=== PATIENT | female | born 1970 | race Caucasian/White ===

== ENCOUNTER 2023-02-28 11:23 | Day surgery (SDC) | payer OTHER, SELFPAY ==
[2023-02-28] VITALS (14 sets, daily range): BP systolic 125–145; BP diastolic 68–84; PULSE 39–60; RESP 12–18; TEMP 36.4–36.7; O2SAT 95–100; BMI 23.8
[2023-02-28] MEDS: LACTATED RINGERS 1000 ML 1,000 ML 100 ML IV (11:35)
--- NOTE | 2023-02-28 12:47 | P.GSCN_ITS ---
History of Present Illness Consult details Date Seen: 02/28/23 Consult date: 02/28/23 Narrative: Patient is an otherwise healthy 52-year-old female who presented to clinic today with worsening abdominal pain. She states that her pain started on was just above her belly button and crampy in quality. She thought that it was associated with her IBS. On Tuesday the pain traveled to her right lower quadrant. Became worse throughout Tuesday and Tuesday. She has never had pain like this before. Movement makes it worse. She does report some nausea, no emesis. Last ate yesterday evening. No fevers or chills at home. She did have some diarrhea starting on . She has never had abdominal surgery before. Review of Systems Status of ROS: Reports: 6 or more systems reviewed and unremarkable except as noted in History and below [facility] Medical History (Updated 02/28/23 @ 12:51 by Lilo Bustamante MD) Colonic polyp ?K63.5 - Polyp of colon (ICD-10) IBS (irritable bowel syndrome) ?K58.9 - Irritable bowel syndrome without diarrhea (ICD-10) Surgical History (Updated 02/28/23 @ 12:08 by Arielle Darling RN) History of D&C ?Z98.890 - Other specified postprocedural states (ICD-10) Social History Smoking Status: Never smoker Do you use any of these nicotine containing products: None How often do you have a drink containing alcohol: monthly or less Alcohol type: wine How many standard drinks containing alcohol do you have on a typical day: 1 or 2 How often do you have six or more drinks on one occasion: Never AUDIT-C Alcohol total score: 1 Non-prescribed substance use: denies use Caffeine: Yes Are you using contraception or practicing any form of control: No (IUD, post menopausal) Meds Home Medications and Allergies Home Medications Medication Instructions Recorded Confirmed Type levonorgestrel 21 mcg/24 hours (8 intrauterine 02/28/23 History yrs) 52 mg intrauterine device (Mirena) Allergies Allergy/AdvReac Type Severity Reaction Status Date / Time latex Allergy Mild Rash Verified 02/28/23 11:49 Sulfa (Sulfonamide Allergy Mild Rash Verified 02/28/23 11:49 Antibiotics) codeine AdvReac Mild Nausea Verified 07/10/23 11:49 Exam Narrative: Exam Narrative: General: Alert and oriented, no acute distress Respiratory: Equal breath rise bilaterally, maintained on room air CV: Regular rhythm rate Abdomen: Soft, tender to palpation right lower quadrant with some guarding, no rebound. Const: Vital Signs, click to edit/add: Vital Signs - 24 hr 02/28/23 12:06 Temperature 98.0 F Pulse Rate 57 L Respiratory Rate 16 Blood Pressure 125/68 Pulse Oximetry 96 Oxygen Delivery Me thod Room Air Results Labs Labs: No evidence of leukocytosis on labs done at clinic (white blood cell 7.3) Imaging Abdomen CT scan report/results: report reviewed and image reviewed Assessment and Plan Assessment and plan (1) Appendicitis: Status: Acute Plan The patient presented with a history, exam and imaging findings on CT scan consistent with acute appendicitis. I discussed the treatment options with the patient including non-surgical and surgical options. I recommended laparoscopic appendectomy. The risks of surgery were reviewed with the patient including the risks of bleeding, post-operative wound or intra-abdominal infection, injury to abdominal structures and possible conversion to an open operation. We also discussed anesthetic complications including NM, stroke, respiratory failure and blood clots. The patient voiced an understanding of our conversation, had the opportunity to ask questions, agreed to accept the risks of surgery and asked that we proceed with surgery.
[2023-02-28] MEDS: BUPIVACAINE 0.25% 30 ML 20 ML INJECTION (13:53)
--- NOTE | 2023-02-28 14:22 | PM.GSPRC ---
Operative Note Date of procedure: 02/28/23 Pre-op diagnosis: Acute appendicitis Post-op diagnosis: same, non perforated Type of Procedure: laparoscopic appendectomy Indications: patient is a 52-year-old female with workup in clinical symptoms consistent with acute appendicitis. Different treatment options were reviewed with the patient, with recommendations for operative intervention. Risks and benefits of operative intervention were discussed at length with the patient. Risks included but was not limited to: Bleeding, infection, risk of damage to surrounding structures, possible need for additional procedures, possible need to convert to an open operation and postoperative complications such as pneumonia, pulmonary emboli or VT. All questions and concerns were addressed with the patient agreeing to proceed. Procedure Description: After discussing the risks and benefits of the procedure, the patient signed informed consent.? The operative site was marked and the patient was brought to the operating room and placed on the operating table in supine position.? Care was taken to pad the patient's pressure points.?? The patient was then intubated by anesthesia.?? The operative site was then prepped and draped in the usual sterile fashion.? A time-out was then performed. Entrance to the abdomen was obtained via a 5 mm optical trocar in the left upper quadrant. The abdomen was insufflated and briefly surveyed for any signs of injury. There were none. A 12 mm port was placed lateral to the umbilicus as well as a 5 mm port in the left lower quadrant under direct vision. The patient was then placed in Trendelenburg position with the right side up. The small bowel was gently moved out of the way and the appendix was in view. the appendix was inflamed, but easily grasped and pulled into view. There was no evidence of perforation. A mesenteric window was created between the base of the appendix and the mesoappendix. A 45 mm Endo-KEITH purple load stapler was then used to transect the appendix at its base. A 30 mm vascular load stapler was then used to take the mesoappendix. The staple lines were inspected for bleeding. There was none. The appendix was then removed from the abdomen using an Endo-Catch bag. The specimen was sent to pathology. The 12 mm port site fascia was closed with 0 Vicryl via the Gaurav Harry. The skin was then closed with absorbable subcuticular suture. Dermabond was then applied. Instrument sponge and needle counts were correct at the end of the case. The patient was then woken and transported to the PACU in stable condition. Findings: Inflamed appendix, non perforated Anesthesia: LOGANA Surgeon: Lilo Bustamante MD Estimated blood loss (mL): 5 Specimen: Appendix Condition: stable Disposition: same day
--- NOTE | 2023-02-28 14:24 | W.ANESCHARGE ---
Anesthesia Charges Start Date/Time Anesthesia Start Date: 02/28/23 Anesthesia Start Time: 13:31 Stop Date/Time Anesthesia Stop Date: 02/28/23 Anesthesia Stop Time: 14:34
--- NOTE | 2023-02-28 14:35 | W.ANESCHARGE ---
Anesthesia Charges Start Date/Time Anesthesia Start Date: 02/28/23 Anesthesia Start Time: 13:31 Stop Date/Time Anesthesia Stop Date: 02/28/23 Anesthesia Stop Time: 14:34
[2023-02-28] MEDS: ONDANSETRON 2 MG/ML inj 4 MG IVP (14:50)
[2023-02-28] MEDS: fentaNYL 100 MCG/2 ML inj 50 MCG IVP (14:51)
[2023-02-28] MEDS: OXYCODONE 5 MG TABLET PO (15:50)
== END 2023-02-28 16:19 | disposition home or self-care (01) ==
PROVIDERS: PCP Physician Assistant; Visit Provider Surgery
PROC: 0DTJ4ZZ Resection of Appendix, Percutaneous Endoscopic Approach (ICD-10-PCS; CPT 44970; principal; 2023-02-28 13:30)
DX: K35.80 Unspecified acute appendicitis (principal)
CPT/HCPCS: 44970; 00840; 88304; A9270; J0330; J0665; J1100; J1885; J2250; J2405; J2543; J2704; J3010; J3490; J7120

== ENCOUNTER 2023-05-26 19:29 | Outpatient (CLI) | payer OTHER, SELFPAY ==
--- NOTE | 2023-05-26 19:45 | CRLHL7_ITS ---
For Patients: As a result of the Century Cures Act, medical imaging exams and procedure reports are released immediately into your electronic medical record. You may view this report before your referring provider. If you have questions, please contact your health care provider. HISTORY: Pain and swelling. Trauma. TECHNIQUE: Noncontrast MRI of the right ankle. COMPARISON: No prior. FINDINGS: Tendons: Small amount of fluid within the posteromedial flexor tendon sheaths. Those tendons appear intact otherwise. The anterior extensor tendons are intact. The peroneal tendons are intact. There is mild Achilles tendinosis. No Achilles tendon tear. - Ligaments: The anterior talofibular ligament appears disrupted. The calcaneofibular ligament is also abnormal with increased signal within the ligament towards its calcaneal attachment indicating sequelae of high-grade tearing. The posterior talofibular ligament is intact. The anterior and posterior syndesmotic ligaments are intact. There is high-grade partial tearing of the deltoid ligament as noted on coronal PD fat sat image #19 of series 6. Calcaneonavicular spring ligament intact. - Joint spaces: Small amount of ankle joint fluid. No focal cartilage defect or joint body. Small posterior subtalar joint effusion. Subtalar articulations otherwise maintained. Talonavicular and calcaneocuboid articulations are maintained. Joint spaces within the midfoot and at the midfoot-forefoot junction are maintained. - Bones and soft tissues: There is no acute fracture or avascular necrosis. Subcutaneous edema like signal is present. No proximal plantar fascial tear. IMPRESSION: 1. Complete tear of the anterior talofibular ligament. At least high-grade partial tearing of the calcaneofibular ligament towards its calcaneal attachment. 2. High-grade partial tearing of the deltoid ligament. 3. Syndesmotic ligaments intact. 4. Soft tissue edema. 5. Mild Achilles tendinosis, without tendon tear. 6. No acute fractures. Dictated by Dallin Martinez MD @ 05/29/2023 8:47:34 AM (Electronically Signed)
== END 2023-05-26 19:30 | disposition home or self-care (01) ==
LOC: MRI 19:30
PROVIDERS: PCP Physician Assistant; Visit Provider Podiatrist
DX: M25.571 Pain in right ankle and joints of right foot (principal); S93.401A Sprain of unspecified ligament of right ankle, initial encounter; S93.491A Sprain of other ligament of right ankle, initial encounter; S93.421A Sprain of deltoid ligament of right ankle, initial encounter
CPT/HCPCS: 73721

== ENCOUNTER 2023-09-19 09:18 | Outpatient (CLI) | payer OTHER, SELFPAY ==
--- OUTSIDE RECORDS SUMMARY | 2023-09-19 09:30 | XMS_ITS ---
Author Name Unknown Organization [facility] Address [address] [place] [address] Care Team Providers Care Pipe Line Maintenance Supervisor Name Role Phone Unavailable Unavailable Unavailable Surgery Details Not on file Complications Check Surgery Details section. Procedure Estimated Blood Loss Check Surgery Details section. Procedure Findings Check Surgery Details section. Procedure Specimens Taken Check Surgery Details section.
--- OUTSIDE RECORDS SUMMARY | 2023-09-19 09:30 | XMS_ITS | Referral Summary ---
Author Name Unknown Organization [facility] Address [address] [place] [address] Care Team Providers Care Percussion Instrument Repairer Name Role Phone Unavailable Primary Care Provider Unavailabl e Source Comments Patient records contain information from all sites at [facility]. For routine questions regarding patient records, call [phone] during business hours, M-F 8:00 AM - 5:00 PM Central Time. Record requests for emergency care only can be directed to [phone] at any time.[facility] Social History Tobacco Use Types Packs/Day Years Used Date Smoking Tobacco: Never Assessed Nutrition Answer Date Recorded Nutrition: EVOO Fat Source Unknown 10/24 Nutrition: Servings of Fruits/Vegetables per Day Not on file 10/24/2020 Dental Answer Date Recorded Dental: Regular Dentist Unknown 10/25/19 21 Sex and Gender Information Value Date Recorded Sex Assigned at Not on file Gender Identity Not on file Sexual Orientation Not on file Plan of Treatment Not on file
--- OUTSIDE RECORDS SUMMARY | 2023-09-19 09:30 | XMS_ITS | Clinical Summary ---
Author Name Unknown Organization [facility] Address [address] [place] [address] Care Team Providers Care Control Systems Developer Name Role Phone Unavailable Primary Care Provider Unavailabl e Source Comments Patient records contain information from all sites at [facility]. For routine questions regarding patient records, call [phone] during business hours, M-F 8:00 AM - 5:00 PM Central Time. Record requests for emergency care only can be directed to [phone] at any time.[facility] Social History Tobacco Use Types Packs/Day Years [...] Orientation Not on file Plan of Treatment Health Maintenance Due Date Last Done Comments CT Colonography 1969 Cervical Cancer Screening 1969 Cologuard 1969 Colonoscopy 1969 Colorectal Cancer Screening 1969 FIT 1969 HIV Screening 1969 Hepatitis C Screening 1969 Mammogram 1969 Fasting Glucose for Diabetes Screening 10/10/2022 10/10/2019 Zoster Vaccines (2 of 2) 12/08/2022 10/13/2022 Depression Screening (Annual PHQ-2) 08/22/2023 Lipid (Cholesterol) Screening 10/10/2024 10/10/2019 DTaP,Tdap,and Td Vaccines (3 - Td or Tdap) 10/10/2029 10/10/2019, 07/05/2008, 01/01/1996 Hepatitis B Vaccines Completed 09/20/2011, 05/10/2011, 11/26/2010 COVID-19 Vaccine Completed 06/11/2023, , 12/26/2020, Additional history exists Influenza Vaccine Completed 06/11/2023, , 10/21/2019, Additional history exists Pneumococcal vaccine (0-64 years) Aged Out No longer eligible based on patient's age to complete this topic
--- OUTSIDE RECORDS SUMMARY | 2023-09-19 09:31 | XMS_ITS | Data Portability ---
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 The patient was verbally identified and written consent was obtained prior to our session. These sessions are not being recorded. Due to the nature of telemedicine the ability to do physical assessment was limited to what can be accomplished over a video and by patient instruction. Those limits are understood by the patient and myself. Impression is based on history, available information and physical findings accomplished with video assist. Chronic disease/problem list and medication list were reviewed and updated where indicated. We reviewed the patients past medical and personal history, family medical history, social history, past hospitalizations and surgical history and a review of systems was reviewed and addressed as documented today as part of this visit. Medication list was reviewed and adjusted as indicated. We discussed the diagnosis, contributing factors and treatment plan including risks, benefits and options of treatment. Level of patient risk was of moderate complexity due to the documented nature of presentation, the information assessment required and the nature of the development of an evaluation and treatment plan as documented. Today I spent a considerable amount of time discussing the patient's past medical and personal history all of which is documented in its entirety in the electronic health record. I reviewed the pathophysiology of the disorder, potential contributing and risk factors as well as treatment options to address their complaints. Today no imaging was obtained due to telehealth. I will obtain a PANORAMIC film at the patient's in-office appointment. From a treatment perspective I've recommended rehabilitative treatment approach. Treatment begins with home self management designed to rest the muscles of mastication and reduce inflammation in the temporomandibular joints. This includes heat and ice compresses, eating a soft food or pain-free diet, bilateral chewing, identifying and decreasing daytime muscle tension and modification of their sleep position. Today I taught simple jaw exercises designed to improve jaw mechanics and movement, improve range of mouth opening, and improve TM joint fluid circulation to facilitate healing. This includes jaw rotation, simple stretch and relaxed breathing. This was both demonstrated and given in written format. Concurrently I taught proper posture. I emailed the instructions. Beyond self management I do believe that they would benefit from a maxillary intraoral appliance to help stabilize the musculoskeletal structures of the jaw. In addition I've recommended rehabilitation with physical therapy beginning with telehealth. The goal of treatment is to restore function and reduce pain. I do believe that by following these treatment recommendations there is a good prognosis for reduction of symptoms. Today a prescription for cyclobenzaprine 10 mg qhs, was provided to the patient. The risks and benefits associated with the prescribed medication was discussed with the patient today. Patient was asked to discontinue medication intake and return to clinic if significant side effects were noted from the medication. Greater than 50% of today's visit was spent counseling and coordinating care. Today's visit start time was 9:30 am and end time was 10:21 am. I've suggested a return for follow-up care as soon as clinic re-opens. I advised to call for new, worsening or persistent symptoms. Patient is encouraged to visit and use our patient communicator portal as a means of reviewing visit summaries and recommendations generated as part of all patient visits, as a secure means of communication with our office and the doctor for any purpose any time and as a great means to get a copy of patient specific medical records. Not available 12/12/2019 15:11:46 01/07/2020 01/07/2020 Today I reviewed the diagnosis, contributing factors and treatment options. I reviewed and reinforced continued use of self care and home exercises. I've encouraged daily home care use which may consist of heat and ice compresses, oral habit reduction and relaxation techniques. Today I took a panoramic radiograph. In this radiograph the mandibular condyles were partially visualized and appear slightly flattened and irregular suggestive of early stage DJD. There was no other suggestion of osseous or odontogenic abnormalities. We began the fabrication process for a custom maxillary flat plane splint. Deja will also be scheduling for physical therapy. I've suggested that the patient return for follow-up care in 2-4 weeks. Today greater than 50% of the 25 minute visit was spent counseling and coordinating care. This may have included a review of the diagnosis, contributing factors, diagnostic imaging, home self-management strategies and the limitations and expectations. Not available 01/07/2020 17:58:28 01/21/2020 01/21/2020 Patient was seen today for follow-up and insertion of a maxillary stabilization intraoral appliance. Diagnosis and contributing factors were reviewed. Questions were answered. Self-management and home exercise techniques were reviewed. Today the intraoral appliance was fit to patient comfort. Specifically, adjustments were made to balance appliance occlusion. Instructions on proper use and care were discussed/reviewed both written and verbally. I suggested that (s)he uses the appliance as a retraining tool to aid in relaxing their jaw muscles - put it in 20-30 minutes before bed time, keeping their jaw in a relaxed balanced position, simultaneously applying a heat compress on the jaw. Potential side effects were reviewed. The patient was advised to discontinue oral appliance use should they experience untoward side effects or be unable to return for follow-up care. The patient was advised to return in 3-4 weeks to reassess their progress and continue their treatment plan as previously outlined. In addition to oral appliance insertion today we review home self-care strategies as previously discussed. Today greater than 50% of the 15 minute visit was spent counseling and coordinating care. This may have included a review of the diagnosis, contributing factors, home self-management strategies and the limitations and expectations. Not available 01/21/2020 15:50:16 01/21/2020 01/21/2020 Symptoms are consistent with TMD diagnosis. Patient is low complexity with 1 personal factors / comorbidities affecting the plan of care, which with stable clinical presentation. Examination determines affected structures, participation restrictions and/or functional limitations. The patient will benefit from PT to decrease pain and increase function. Contributing factors include muscle guarding, stress and poor posture. Treatment will include exercises to release muscle tension and increase strength and stability. Habit monitoring and repeated reminding techniques will be utilized to eliminate habitual clenching. Improvement in first session; jaw opening increased, cervical ROM increased, pain level decreased Short term goals; 3 weeks Client to be able to open mouth to 35 mm pain free without deviation or crepitis Client to be able to bite down with 50% less pain than at evaluation Client to improve cervical ROM to Within Normal Limits Improve patient awareness of muscle guarding habits to decrease pain by 50% MCFP goals-6 weeks Client to demonstrate independence in maintaining precautions to prevent TMJ pain Client to present with at least 75% less crepitis Client to open jaw to at least 40 mm without pain, deviation or crepitis Improve active lateral excursion to at least 8 mm right and left without pain Client to have pain-free chewing with moderately hard diet 75% of the time Client to report pain level is reduced at least 75% as evidenced by functional limitation scale PLAN: Client is to be seen 1-2x/week for 4-8 weeks for instruction in jaw and neck exercises, postural exercises and body mechanics instructions, self-soft tissue mobilization and avoidance of precipitating parafunctional activities. csather Not available 01/22/2020 12:35:00 01/30/2020 01/30/2020 Improvement in session; jaw opening increased, pain level decreased sas she reports feeling better. Strongly emphasized that she is not to feel increased pain with techniques or the jaw muscles may get tight in reaction to that. Discussed inflammation and how calming that reaction could improve the ability to masssage and loosen the TMJ muscles. Short term goals; 3 weeks Client to be able to open mouth to 35 mm pain free without deviation or crepitis Client to be able to bite down with 50% less pain than at evaluation Client to improve cervical ROM to Within Normal Limits Improve patient awareness of muscle guarding habits to decrease pain by 50% MCFP goals-6 weeks Client to demonstrate independence in maintaining precautions to prevent TMJ pain Client to present with at least 75% less crepitis Client to open jaw to at least 40 mm without pain, deviation or crepitis Improve active lateral excursion to at least 8 mm right and left without pain Client to have pain-free chewing with moderately hard diet 75% of the time Client to report pain level is reduced at least 75% as evidenced by functional limitation scale PLAN: Client is to be seen 1-2x/week for 4-8 weeks for instruction in jaw and neck exercises, postural exercises and body mechanics instructions, self-soft tissue mobilization and avoidance of precipitating parafunctional activities. csather Not available 01/30/2020 17:46:41 02/06/2020 02/06/2020 Improvement in session; jaw opening increased to 32, pain level decreased sas she reports feeling better. Strongly emphasized that she is not to feel increased pain with techniques or the jaw muscles may get tight in reaction to that. Discussed inflammation and how calming that reaction could improve the ability to massage and loosen the TMJ muscles. She used the ice popsicle several times but is not as inflamed today. Strongly cautioned client to avoid going overhead with kettleball Short term goals; 3 weeks Client to be able to open mouth to 35 mm pain free without deviation or crepitis Client to be able to bite down with 50% less pain than at evaluation Client to improve cervical ROM to Within Normal Limits Improve patient awareness of muscle guarding habits to decrease pain by 50% superintendent marine oil terminal goals-6 weeks Client to demonstrate independence in maintaining precautions to prevent TMJ pain Client to present with at least 75% less crepitis Client to open jaw to at least 40 mm without pain, deviation or crepitis Improve active lateral excursion to at least 8 mm right and left without pain Client to have pain-free chewing with moderately hard diet 75% of the time Client to report pain level is reduced at least 75% as evidenced by functional limitation scale PLAN: Client is to be seen 1-2x/week for 4-8 weeks for instruction in jaw and neck exercises, postural exercises and body mechanics instructions, self-soft tissue mobilization and avoidance of precipitating parafunctional activities. csather Not available 02/06/2020 17:45:11 01/12/2021 01/12/2021 Today I reviewed the diagnosis, contributing factors and treatment options. I reviewed and reinforced continued use of self care and home exercises. I've encouraged daily home care use which may consist of heat and ice compresses, oral habit reduction and relaxation techniques. The intraoral appliance was adjusted to patient comfort and balanced. Deja said that it felt much more comfortable. She will start wearing it tonight. History today was obtained from the patient. The patient has 5+ diagnoses they would like to address. Their symptoms are improving. This case is moderate complexity because of multiple diagnoses with chronic symptoms. Risk of complications including disease progression were discussed. Today time spent may have included a review of past records, history taking, review of diagnoses, contributing factors, treatment plan, diagnostic testing, prognosis, expectations, risks and complications of treatment/no treatment, discussions with other providers and completing documentation was 35 minutes. I've suggested that the patient return for follow-up care in 2-4 weeks. Not available 01/13/2021 09:42:51 Plan of Treatment Reminders Order Date Submit Date Provider Last Modified By Organization Details Last Modified Time Details Appointments None recorded. Lab None recorded. Referral physical therapist referral 2019 020 sloane l1 [place], [facility] [address], [address], 0 16:02:39 Procedures None recorded. Surgeries None recorded. Imaging XR, orthopantog geraldine 2019 020 sloane l1 El[place], [facility] [address], [place], [address], 0 16:02:39 Medication Orders cyclobenzap rine 10 mg tablet 2019 020 vsheppard 3 [id number], [address] [place] [address], [id number], 0 15:12:52 Patient Targets Encounter Date Encounter Id Patient Goals Patient Target Last Modified By Organization Details Last Modified Time open jaw further csather Not available 02/06/2020 17:05:19 open jaw further csather Not available 01/30/2020 17:07:45 open jaw further csather Not available 01/22/2020 12:34:05 Patient Instructions Encounter Date Encounter Id Patient Instructions Last Modified By Organization Details Last Modified Time 12/12/2019 [id number] oral appliance preparation* Not available 12/12/2019 15:14:37 Self Care for TMD Not availabl e 12/12/2019 15:14:37 Three Jaw Exercises Not available 12/12/2019 15:14:37 Reason for Referral Physical Therapist Referral for Myofascial pain Referring Physician: Kaitlin Ferris, Pain Management, Encounter Date: 12/12/2019 Results Created Date Observation Date Name Description Value Unit Range Abnormal Flag LastModifiedBy Organization Detail LastModifiedTime 12/12/2019 oral appli ance prepa ratio n* Type of appliance maxill alfredo stabil izatio n applia nce Not Available Elma [address], [place], [address], 12/12/2019 14:18:04 01/07/20 20 XR, ortho panto gram No observ ation record ed. Not Available 01/07/2020 16:48:44 Result Notes None recorded. Problems Name Status Onset Date Resolution Date Notes Provider Name and Address Organization Details Recorded Time Myofascial pain Active 020 masticato ry-improv ed Kaitlin martel [facility] 1 09:38:38 Limited opening of mandible Active 020 improved Kaitlin martel [facility] 1 09:38:41 Otalgia of right ear Active 020 improved Kaitlin martel [facility] 1 09:38:48 Temporomandibular joint crepitus on opening of jaw Active 020 Kaitlin martel [facility] 0 14:17:10 Arthralgia of temporomandibular joint Active 020 improved Kaitlin martel [facility] 1 09:38:58 Screening for disorder Active 020 Kaitlin martel [facility] 0 14:17:45 Problem Notes None recorded. Procedures Surgical History Date Name Laterality Status Provider Name and Address Organization Details Recorded Time 02/06/20 20 83425: Therapeutic Exercise completed Manuel martel [facility] 02/06/2020 17:05:19 02/06/20 20 59047: Manual Therapy completed Manuel martel [facility] 02/06/2020 17:05:19 01/30/20 20 11979: Therapeutic Exercise completed Manuel martel [facility] 01/30/2020 17:07:44 01/30/20 20 38895: Manual Therapy completed Manuel martel [facility] 01/30/2020 17:43:38 01/21/20 [facility] 01/21/2020 15:16:03 01/21/20 11477 PT Eval - Low Complexity [facility] 01/21/2020 18:46:00 01/21/20 20 37170: Therapeutic Exercise completed Manuel martel [facility] 01/21/2020 18:46:02 01/21/20 20 67757: Manual Therapy completed Manuel martel [facility] 01/22/2020 12:33:00 01/07/20 20 Orthopantogram completed Kaitlin martel [facility] 01/07/2020 17:09:16 08/22/19 18 procedure on foot completed Vidal martel [facility] 12/12/2019 10:13:02 08/22/18 97 [place] Teeth Extraction completed Vidal martel [facility] 12/12/2019 10:12:37 08/22/18 89 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 Medical Equipment None Reported. Allergies Allergen ID Allergen Name Allergen Category Reaction Reaction Severity Criticality Documentation Date Start Date Code Code System Note Provider Name and Address Organization Details Recorded Time 43333 codeine medicatio n Not available Not available Not available 12/12/2019 2670 RxNorm Vidal martel [facility] 0 10:07:01 09760 Substance with sulfonami de structure and antibacte rial mechanism of action (substanc e) medicatio n Not available Not available Not available 12/12/2019 92726 8003 [facility]ED [facility] 0 10:07:09 56439 latex environme nt,medica tion Not available Not available Not available 01/12/2021 85882 91 [facility] 1 15:44:31 Medications Name Sig Start Date Stop Date Status Note LastModified by Organization Details LastModified Time cyclobenzapr ine 10 mg tablet Take 1 tablet every day by oral route at bedtime for 30 days. 01/20 completed Not Available Not Available Not Available Vitals Date Recorded Body height Body mass index (BMI) Body weight Provider Name and Address Organization Details Last Updated DateTime 12/12/2019 172.72 cm 24.3 kg/m2 48634.78 g [facility] 12/12/2019 10:06:20 Date Recorded Body height Provider Name an d Address Organization Details Last Updated DateTime 01/07/[address] [facility] 01/07/2020 16:49:15 Date Recorded Body height Provider Name an d Address Organization Details Last Updated DateTime 01/21/[address] [facility] 01/21/2020 15:12:28 Date Recorded Body height Body temperature Heart rate Systolic blood pressure Diastolic blood pressure Provider Name and Address Organization Details Last Updated DateTime 01/12/2021 172.72 cm 97.7 [degF] 54 /min 107 mm[Hg] 64 mm[Hg] Lee martel [facility] 1 15:44:58 Social History Question Answer Notes LastModified by Organizat ion Details LastModified Time Tobacco Smoking Status Former Smoker Vidal De Jesus [facility] 12/12/2019 10:10:04 What Is Your Level Of Alcohol Consumption? Moderate Information not available 12/12/2019 Auto Related Injury? No Information not available 12/12/2019 Are You Currently Employed? Yes Information not available 12/12/2019 Currently No Information not available 12/12/2019 What Type Of Diet Are You Following? REGULAR Information not available 01/12/2021 Do You Or Have You Ever Used E-cigarettes Or Vape? Never Used Electronic Cigarettes Information not available 12/12/2019 Education Post Graduate Information not available 12/12/2019 Live Alone Or With Others? With Others Information not available 12/12/2019 Marital Status Informatio n not available 12/12/2019 What Number Best Describes Your Pain On Average In The Past Week? (0=no Pain, 10=pain As Bad As You Can Imagine) 3 Information not available 12/12/2019 Caffeine Use - How Much? 1 Cup Information not available 12/12/2019 General Stress Level Medium Information not available 12/12/2019 Do You Feel Stressed (tense, Restless, Nervous, Or Anxious, Or Unable To Sleep At Night)? [id number] Information not available 01/12/2021 Do You Use Any Illicit Or Recreational Drugs? No Information not available 12/12/2019 Work Related Injury? No Information not available 12/12/2019 Sex: Female Functional Status Question Answer Note LastModified by Organization D etails LastModified Time What is your exercise level? Moderate Information not available 12/12/2019 Mental Status None recorded. Family History Relationship Description Onset Age of this Age Resolved Age Notes Paternal Grandfather Heart disease Paternal Grandmother Family history of cancer Brother Family history of cancer Medical History Condition Response Coronary Artery Disease N Other N Gout N Chronic fatigue syndrome N Hyperthyroidism N Premenstrual syndrome (PMS) N MRSA N Head Trauma/Injury N Emphysema N Irritable bowel syndrome N Glaucoma N Lung Disease N COPD N Hypothyroidism N Depression N Pneumonia N Pacemaker N Obstructive Sleep Apnea N Anxiety Disorder N Autoimmune disease N Muscle, Joint, or Bone Problems N Vision or Eye Problems N Arthritis N Serious Illness or Injuries N Acid Reflux (GERD) N Cancer N Stroke N Eating disorder N Neck Injury N Back Injury N High Cholesterol N History of chemotherapy N Neurologic Disorder N Liver Disease N Organ Transplant N Rheumatoid Arthritis N Headaches N Fibromyalgia N Kidney Disease N Allergies/Hayfever N Post traumatic stress disorder (PTSD) N Parkinson's Disease N Migraines N Brain Tumors N Anemia N Multiple Sclerosis N Immune System Disorder N Meningitis N Pancreatic disease N Heart Attack ([place]) N Stomach Ulcers N Back pain N Diabetes N Bleeding Disorder N Seizures/Epilepsy N Sjogren's syndrome N Tuberculosis N AIDS/HIV N History of radiation therapy N Hyperlipidemia N Dementia N Asthma N Physical or sexual abuse N Substance Abuse N Peripheral Vascular Disease N Psoriasis N Reflux/GERD N Mental Problems N Vertigo N Sleep Disorder N Aneurysm N Hepatitis N Heart Disease N Neuropathy N Pulmonary Embolism N Hypertension N Osteoporosis N Gynecological HistoryNo gynecological history recorded. Obstetrics History GPAL:G 0 P 0 0 0 0 Immunizations Vaccine Type Date Status Provider Name and Address Organization Details Recorded Time influenza, injectable, quadrivalent 10/21/2019 completed Vidal martel [facility] 12/12/2019 10:07:44 SARS-COV-2 (COVID-19) vaccine, UNSPECIFIED 12/20/2020 completed Lee martle [facility] 01/12/2021 15:45:27 Past Encounters Encounter ID Performer Location Encounter Start Date Encounter Closed Date Diagnosis/Indication [id number] Kaitlin Ferris [place] [address] [place] [address] 12/12/2019 09:50:12 12/12/2019 16:02:39 Otalgia of right ear Limited opening of mandible Temporomandibular joint crepitus on opening of jaw Arthralgia of temporomandibular joint Myofascial pain Screening for disorder [id number] Kaitlin Ferris Elma [address] [place] [phone] 01/07/2020 16:37:03 01/07/2020 23:05:11 Myofascial pain Limited opening of mandible Otalgia of right ear Temporomandibular joint crepitus on opening of jaw Arthralgia of temporomandibular joint [id number] Manuel Deepti [place] [address] [place] [phone] 01/21/2020 14:03:48 01/21/2020 16:06:42 Limited opening of mandible Otalgia of right ear Arthralgia of temporomandibular joint Screening for disorder [id number] Kaitlin Rosaura [place] [address] [place] [phone] 01/21/2020 15:11:21 01/21/2020 16:02:50 Myofascial pain Limited opening of mandible Otalgia of right ear Temporomandibular joint crepitus on opening of jaw Arthralgia of temporomandibular joint Screening for disorder [id number] Manuel Deepti [place] [address] [place] [phone] 01/30/2020 17:03:19 01/30/2020 20:13:50 Limited opening of mandible Otalgia of right ear Arthralgia of temporomandibular joint Screening for disorder Myofascial pain Temporomandibular joint crepitus on opening of jaw [id number] Manuel Deepti [place] [address] [place] [phone] 02/06/2020 17:03:10 02/06/2020 17:36:27 Limited opening of mandible Otalgia of right ear Arthralgia of temporomandibular joint Screening for disorder Myofascial pain Temporomandibular joint crepitus on opening of jaw [id number] Kaitlin Rosaura [place] [address] [place] [phone] 01/12/2021 15:37:41 01/12/2021 16:19:56 Myofascial pain Limited opening of mandible Otalgia of right ear Temporomandibular joint crepitus on opening of jaw Arthralgia of temporomandibular joint Screening for disorder Health Concerns Section Related Observation LastModified by Organization Detai ls LastModified Time None Recorded Concern Status LastModified by Organization

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
--- NOTE | 2023-09-19 10:26 | W.ANESCHARGE ---
Anesthesia Charges Start Date/Time Anesthesia Start Date: 09/19/23 Anesthesia Start Time: 10:02 Stop Date/Time Anesthesia Stop Date: 09/19/23 Anesthesia Stop Time: 10:24
--- NOTE | 2023-09-19 11:44 | W.ANESCHARGE ---
Anesthesia Charges Start Date/Time Anesthesia Start Date: 09/19/23 Anesthesia Start Time: 10:02 Stop Date/Time Anesthesia Stop Date: 09/19/23 Anesthesia Stop Time: 10:24
== END 2023-09-19 09:19 | disposition home or self-care (01) ==
LOC: OP CLINIC 09:19
PROVIDERS: PCP Family Medicine; Visit Provider Internal Medicine Gastroenterology
DX: Z12.11 Encounter for screening for malignant neoplasm of colon (principal); Q43.8 Other specified congenital malformations of intestine; Z86.010 Personal history of colon polyps
CPT/HCPCS: 00811; 00812; 45378; J2704

== ENCOUNTER 2024-02-10 15:15 | Outpatient (RCR) | payer OTHER, SELFPAY | END 2024-06-09 23:59 | disposition home or self-care (01) | PROVIDERS: PCP Physician Assistant; Visit Provider Family Medicine | DX: G25.89 Other specified extrapyramidal and movement disorders (principal); M62.838 Other muscle spasm; M54.2 Cervicalgia; M25.512 Pain in left shoulder; G89.29 Other chronic pain; R29.898 Other symptoms and signs involving the musculoskeletal system; Z51.89 Encounter for other specified aftercare | CPT/HCPCS: 97110; 97140; 97161; 97164 ==